=== PATIENT | female | born 1940 | race Two or more races ===

== ENCOUNTER → 2017-12-13 | Outpatient (CLI) | payer OTHER ==
[~2017-12-13] VITALS: Ht 152.4 cm; Wt 63.5 kg
[~2017-12-13] MED LIST: COZAAR50 MG; CRESTOR5 MG; GILTUSS COUGH-118 ML PO; LEVAQUIN750 MG PO; MEDROL4 MG PO; TESSALON PERLE100 MG PO; THEOPHYLLINE 200 MG PO; VASOFLEX FORTE1 EACH PO; ZITHROMAX200 MG PO
== END | disposition home or self-care (01) ==
LOC: PPHC 15:13
DX: R05 Cough (principal); J06.9 Acute upper respiratory infection, unspecified

== ENCOUNTER 2018-09-25 11:07 | Outpatient (CLI) | payer OTHER | END 2018-09-25 11:12 | disposition home or self-care (01) | LOC: SONOGRAMA | DX: M25.511 Pain in right shoulder (principal) ==

== ENCOUNTER → 2019-07-30 | Outpatient (CLI) | payer OTHER | END | disposition home or self-care (01) | LOC: RAD 14:48 | DX: M19.071 Primary osteoarthritis, right ankle and foot (principal); M19.072 Primary osteoarthritis, left ankle and foot ==

== ENCOUNTER → 2022-06-03 10:09 | Outpatient (CLI) | payer OTHER ==
[~2022-06-03 10:09] MED LIST changes: +NEURONTIN300 MG PO
== END | disposition home or self-care (01) ==
LOC: NUCLEAR 10:00
PROVIDERS: ATTEND Internal Medicine
DX: I73.9 Peripheral vascular disease, unspecified (principal)

== ENCOUNTER 2023-08-10 10:48 | Outpatient (CLI) | payer OTHER | END 2023-08-10 10:55 | disposition home or self-care (01) | LOC: RAD 10:48 | PROVIDERS: ATTEND Internal Medicine | DX: M13.80 Other specified arthritis, unspecified site (principal) ==